=== PATIENT | female | born 1955 | race Caucasian/White ===

== ENCOUNTER 2017-04-28 07:31 | Day surgery (SDC) | payer BC ==
[~2017-04-28 07:31] MED LIST: Buffered Lidocaine 0.9% SYRIN* 5 ML/SYR SYRINGE INTRADERM ONE; Famotidine IV* 10 MG/ML 2 ML (20 mg) IV ONE
[2017-04-28] MEDS ORDERED: ceFAZolin 1 GM in Dextrose (*) 2 GM/100 ML BAG IVPB ONE (07:39)
[2017-04-28] MEDS ORDERED: Famotidine IV* 10 MG/ML 2 ML (20 mg) ONE (07:39)
[2017-04-28] MEDS ORDERED: Buffered Lidocaine 0.9% SYRIN* 5 ML/SYR SYRINGE ONE (07:39)
[2017-04-28] MEDS ORDERED: Midazolam* 1 MG/ML 5 ML VIAL (5 MG) ONE (07:47)
[2017-04-28] MEDS ORDERED: fentaNYL* 50 MCG/ML 2 ML VIAL (100 MCG VIAL) ONE (07:47)
[2017-04-28] MEDS ORDERED: Acetaminophen TAB* 325 MG PO PRN (08:21)
[2017-04-28] MEDS ORDERED: DiMENhydriNATE IV* 50 MG/ML VIAL IV PUSH PRN (08:21)
[2017-04-28] MEDS ORDERED: Naloxone* 0.4 MG/ML 1 ML VIAL IV PRN (08:21)
[2017-04-28] MEDS ORDERED: Ondansetron INJ* 2 MG/ML VIAL ONE (09:13)
[2017-04-28] MEDS ORDERED: Propofol* 10 MG/ML 20 ML BTL IV PUSH ONE (09:13)
[2017-04-28] MEDS ORDERED: Ketorolac INJ* 30 MG/ML 1 ML VIAL ONE (09:13)
[2017-04-28] MEDS ORDERED: Lidocaine 2% PF * 5 ML VIAL ONE (09:13)
[2017-04-28] MEDS ORDERED: Dexamethasone IV* 4 MG/ML 1 ML (4 MG) ONE (09:13)
[2017-04-28] MEDS ORDERED: Acetaminophen TAB* 325 MG ONE (10:03)
[2017-04-28] MEDS ORDERED: oxyCODONE TAB* 5 MG TAB ONE (10:03)
[2017-04-28] MEDS: oxyCODONE TAB* 5 MG TAB PO PRN ×2 (10:06→10:33)
[2017-04-28 11:02] VITALS: BP 121/80
--- NOTE | 2017-05-03 04:13 | OP ---
DATE OF OPERATION: 04/28/17 - SDS DATE OF : 51 SURGEON: Gabriel Stevens MD FELT HAT MELLOWING MACHINE OPERATOR: LORENZO Forman. An optometry assistant was needed for the procedure to aid in positioning of the arm and retraction. ANESTHESIOLOGIST: Dr. Olivares. ANESTHESIA: General. PRE-OP DIAGNOSIS: Symptomatic hardware, left distal radius. POST-OP DIAGNOSIS: Symptomatic hardware, left distal radius. OPERATIVE PROCEDURE: Removal of the plate and screws of left distal radius. INDICATIONS: Jesika had her wrist fracture fixed quite some time ago. She is having pain. She is having worse pain with weather changes. I talked to her about her treatment options. I told her there is a chance that we could remove the plate and she could still have pain. We elected to proceed with removal of the plate to see if she could get some pain relief. ESTIMATED BLOOD LOSS: 2 mL. COMPLICATIONS: None. FINDINGS: As expected. DESCRIPTION OF PROCEDURE: After Jesika has been brought back to the operating room, the arm was prepped and draped in the usual fashion. I exsanguinated the arm with the Esmarch and the tourniquet was inflated to 250 mmHg. I reopened her forearm incision over the distal aspect of the FCR. The sheath over the FCR was released. The subsheath was released. The pronator was released off the radial aspect of the distal radius. It actually was looking quite good. The soft tissue over the plate was removed with the Bovie. Screws were all removed. Plate were removed. The rough edges were smoothed back with the rongeur. As everything was nice and smooth, I reclosed the pronator with 0 Vicryl suture. The skin was closed with 4-0 Monocryl and Steri-Strips. The wound was infiltrated with 0.25% plain Marcaine. The wound was dressed with Xeroform, 4 x 4s, sterile Webril, and an Dylan bandage. Tourniquet was deflated and she was taken to the recovery room in stable condition. [id number]/[facility] #: [id number] MTDD
== END 2017-04-28 11:29 | disposition home or self-care (01) ==
LOC: OR 07:31
PROVIDERS: ATTEND Orthopaedic Surgery Hand Surgery
DX: T84.84XA Pain due to internal orthopedic prosthetic devices, implants and grafts, initial encounter (principal); Y83.1 Surgical operation with implant of artificial internal device as the cause of abnormal reaction of the patient, or of later complication, without mention of misadventure at the time of the procedure; S52.502S Unspecified fracture of the lower end of left radius, sequela; X58.XXXS Exposure to other specified factors, sequela; Y92.9 Unspecified place or not applicable; E03.9 Hypothyroidism, unspecified; I34.1 Nonrheumatic mitral (valve) prolapse; F32.9 Major depressive disorder, single episode, unspecified
CPT/HCPCS: 88300; A9270-GY; J0690; J1100; J1885; J2250; J2405; J2704; J3010